=== PATIENT | female | born 1975 | race Caucasian/White ===

== ENCOUNTER 2021-04-26 12:53 | Emergency (ER) | payer SELFPAY | END 2021-04-26 13:58 | disposition left against medical advice (07) | LOC: ER 12:53 | DX: T78.40XA Allergy, unspecified, initial encounter (principal); Z53.21 Procedure and treatment not carried out due to patient leaving prior to being seen by health care provider ==

== ENCOUNTER 2022-03-07 18:34 | Emergency (ER) | payer SELFPAY ==
[~2022-03-07] VITALS: Ht 172.7 cm; Wt 90.0 kg
[2022-03-07 18:47] VITALS: BP 170/90
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
--- NOTE | 2022-03-07 19:59 | RAD ---
INDICATION: Reason: pain fell one and half months ago / Spl. Instructions: / History: COMPARISON: None. IMPRESSION: Left shoulder: 3 views obtained. No acute fracture or dislocation. Haziness projecting over the left lower lung could be from overlapping soft tissue structures but cannot exclude atelectasis or infiltr ate in the region Electronically signed by: Joselo Hussein MD (03/07/2022 7:56 PM) [id number]
== END 2022-03-07 20:22 | disposition home or self-care (01) ==
LOC: ER 18:34
DX: S40.012A Contusion of left shoulder, initial encounter (principal); W18.39XA Other fall on same level, initial encounter; Y93.89 Activity, other specified; Y92.89 Other specified places as the place of occurrence of the external cause; Y99.8 Other external cause status
CPT/HCPCS: 73030; 99283